=== PATIENT | female | born 1985 | race Caucasian/White ===

== ENCOUNTER → 2016-09-17 | Outpatient (CLI) | payer SELFPAY | LOC: RAD 15:09 | PROVIDERS: ATTEND Nurse Practitioner Women's Health | DX: Z34.81 Encounter for supervision of other normal pregnancy, first trimester (principal) | CPT/HCPCS: 76801 ==

== ENCOUNTER 2016-09-28 18:47 | Emergency (ER) | payer MEDICAID ==
--- NOTE | 2016-09-28 19:00 | ER Document Report ---
ED Medical Screen (RME) - General Chief Complaint: Vaginal Bleeding Stated Complaint: VAGINAL BLEEDING Mode of Arrival: Ambulatory Information source: Patient Notes: Patient presents to the emergency department with reports of vaginal spotting. Reports brown discharge. Also complains of back pain. Vomiting or diarrhea. Patient is approximately 10 weeks . G9 P 5 TRAVEL OUTSIDE OF THE [place] IN LAST 30 DAYS: No - Related Data Allergies/Adverse Reactions: No Known Allergies Allergy (Verified 09/28/16 18:57) Past Medical History - Social History Chew tobacco use (# tins/day): No Frequency of alcohol use: None Drug Abuse: None - Past Medical History Cardiac Medical History: Denies: Hx Hypertension, Hx Pulmonary Embolism, Hx Heart Murmur Pulmonary Medical History: Denies: Hx Asthma, Hx Sleep Apnea, Hx Tuberculosis Neurological Medical History: Denies: Hx Cerebrovascular Accident, Hx Seizures Endocrine Medical History: Reports: Hx Hyperthyroidism. Denies: Hx Hypothyroidism Renal/ Medical History: Reports: Hx Ovarian Cysts. Denies: Hx Kidney Stones, Hx Peritoneal Dialysis, Hx Pelvic Inflammatory Disease Malignancy Medical History: Denies: Hx Breast Cancer, Hx Cervical Cancer, Hx Ovarian Cancer GI Medical History: Denies: Hx Gastroesophageal Reflux Disease, Hx Hiatal Hernia , Hx Ulcer Musculoskeltal Medical History: Denies Hx Fibromyalgia Psychiatric Medical History: Reports: Hx Anxiety, Hx Depression Denies: Hx Bipolar Disorder, Hx Post Traumatic Stress Disorder, Hx Schizophrenia Traumatic Medical History: Denies: Hx Fractures Infectious Medical History: Denies: Hx HIV - Immunizations Hx Diphtheria, Pertussis, Tetanus Vaccination: Yes - 2006 Physical Exam - Vital signs Vitals: Temp Pulse Resp BP Pulse Ox 99.2 F 92 20 149/92 H 100 09/28/16 18:58 09/28/16 18:58 09/28/16 18:58 09/28/16 18:58 09/28/16 18:58 Course - Vital Signs Vital signs: Temp Pulse Resp BP Pulse Ox 99.2 F 92 20 149/92 H 100 09/28/16 18:58 09/28/16 18:58 09/28/16 18:58 09/28/16 18:58 09/28/16 18:58
[2016-09-28 19:30] LABS: APPEARANCE,URINE SLIGHTLY-CLOUDY; BILIRUBIN,URINE NEGATIVE (NEGATIVE); GLUCOSE, URINE NEGATIVE (NEGATIVE); KETONES,URINE NEGATIVE (NEGATIVE); LEUKOCYTE ESTERASE,URINE SMALL (NEGATIVE); NITRITE,URINE NEGATIVE (NEGATIVE); PROTEIN,URINE NEGATIVE (NEGATIVE); URINE SPECIFIC GRAVITY 1.018
[2016-09-28 19:32] LABS: ABSOLUTE BASOPHILS # (AUTO) 0.1 10^3/uL (0.0-0.2); ABSOLUTE EOSINOPHILS # (AUTO) 0.1 10^3/uL (0.0-0.6); ABSOLUTE LYMPHOCYTES (AUTO) 2.4 10^3/uL (0.5-4.7); ABSOLUTE MONOCYTES (AUTO) 0.8 10^3/uL (0.1-1.4); ABSOLUTE NEUT (AUTO) 6.7 10^3/uL (1.7-8.2); BASOPHILS % (AUTO) 0.8 % (0-2); EOSINOPHILS % (AUTO) 1.4 % (0-6); HEMATOCRIT 36.4 % (36.0-47.0); HEMOGLOBIN 12.6 g/dL (12.0-15.5); HGB HCT DIFFERENCE 1.4; LYMPHOCYTES % (AUTO) 24.1 % (13-45); MEAN CORPUSCULAR HEMOGLOBIN 28.7 pg (27.0-33.4); MEAN CORPUSCULAR HGB CONC 34.7 g/dL (32.0-36.0); MEAN CORPUSCULAR VOLUME 83 fl (80-97); MONOCYTES % (AUTO) 7.5 % (3-13); RED CELL DISTRIBUTION WIDTH 12.9 % (11.5-14.0); SEGMENTED NEUTROPHILS % (AUTO) 66.2 % (42-78); WHITE BLOOD COUNT 10.1 10^3/uL (4.0-10.5)
[2016-09-28 19:46] LABS: ALANINE AMINOTRANSFERASE 24 U/L (9-52); ALBUMIN 4.1 g/dL (3.5-5.0); ALKALINE PHOSPHATASE 93 U/L (38-126); ANION GAP 14 (5-19); ASPARTATE AMINO TRANSFERASE 18 U/L (14-36); BILIRUBIN,DIRECT 0.2 mg/dL (0.0-0.4); BILIRUBIN,TOTAL 0.3 mg/dL (0.2-1.3); BLOOD UREA NITROGEN 10 mg/dL (7-20); CALCIUM 10.5 mg/dL (8.4-10.2); CARBON DIOXIDE 26 mmol/L (22-30); CHLORIDE 103 mmol/L (98-107); CREATININE RESULT 0.55 mg/dL (0.52-1.25); GLUCOSE 93 mg/dL (75-110); POTASSIUM 4.4 mmol/L (3.6-5.0); SODIUM 142.5 mmol/L (137-145); TOTAL PROTEIN 7.2 g/dL (6.3-8.2)
--- NOTE | 2016-09-28 21:27 | ER Document Report ---
ED GI/ - General Time seen by provider: 21:20 Mode of Arrival: Ambulatory Information source: Patient TRAVEL OUTSIDE OF THE [place] IN LAST 30 DAYS: No - HPI Patient complains to provider of: Vaginal bleeding Associated symptoms: Other - See above <SIMONE TIWARI - Last Filed: 09/28/16 21:36> <MUKUND JACOME - Last Filed: 09/28/16 22:58> - General Chief Complaint: Vaginal Bleeding Stated Complaint: VAGINAL BLEEDING Notes: Patient is a 31 year old female who presents to the emergency department complaining of vaginal bleeding onset today. Patient states that she is about 10 weeks and had an ultrasound done 2 weeks ago showing a normal . Patient reports the bleeding is more of spotting and also complains of low to middle back pain. Patient denies any difficulty urinating and recent intercourse. 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 Vp Patient: [facility] (SIMONE TIWARI) - Related Data Allergies/Adverse Reactions: No Known Allergies Allergy (Verified 09/28/16 18:57) Past Medical History - General Information source: Patient - Social History Smoking Status: Never Smoker Chew tobacco use (# tins/day): No Frequency of alcohol use: None Drug Abuse: None Family History: Reviewed & Not Pertinent Endocrine Medical History: Reports: Hx Hyperthyroidism Renal/ Medical History: Reports: Hx Ectopic , Hx Ovarian Cysts Psychiatric Medical History: Reports: Hx Anxiety, Hx Depression - Immunizations Hx Diphtheria, Pertussis, Tetanus Vaccination: Yes - 2006 <SIMONE TIWARI - Last Filed: 09/28/16 21:36> Review of Systems - Review of Systems Constitutional: No symptoms reported EENT: No symptoms reported Cardiovascular: No symptoms reported Respiratory: No symptoms reported Gastrointestinal: No symptoms reported Genitourinary: denies: Other - difficulty urinating Female Genitourinary: See HPI, Vaginal bleeding Musculoskeletal: See HPI, Back pain Skin: No symptoms reported Hematologic/Lymphatic: No symptoms reported Neurological/Psychological: No symptoms reported -: Yes All other systems reviewed and negative <SIMONE TIWARI - Last Filed: 09/28/16 21:36> Physical Exam - Vital signs Interpretation: Normal - General General appearance: Appears well, Alert - HEENT Head: Normocephalic, Atraumatic - Respiratory Respiratory status: No respiratory distress - Cardiovascular Rhythm: Regular Heart sounds: Normal auscultation Murmur: No - Abdominal Inspection: Normal Distension: No distension Bowel sounds: Normal Tenderness: Nontender Organomegaly: No organomegaly - Back Back: Normal, Nontender - Extremities General upper extremity: Normal inspection, Normal ROM, Normal strength General lower extremity: Normal inspection, Normal ROM, Normal strength, Normal weight bearing - Neurological Neuro grossly intact: Yes Cognition: Normal Orientation: AAOx4 [place] Coma Scale Eye Opening: Spontaneous [place] Coma Scale Verbal: Oriented [place] Coma Scale Motor: Obeys Commands [place] Coma Scale Total: 15 Speech: Normal Motor strength normal: LUE, RUE, LLE, RLE - Psychological Associated symptoms: Normal affect, Normal mood - Skin Skin Temperature: Warm Skin Moisture: Dry Skin Color: Normal <SIMONE TIWARI - Last Filed: 09/28/16 21:36> Course - Laboratory Result Diagrams: 09/28/16 19:10 09/28/16 19:10 <SIMONE TIWARI - Last Filed: 09/28/16 21:36> - Laboratory Result Diagrams: 09/28/16 19:10 09/28/16 19:10 <MUKUND JACOME - Last Filed: 09/28/16 22:58> - Re-evaluation Re-evalutation: 09/28/16 Patient appears well. No bleeding currently. Good movement and heart beat on ultrasound. Patient is instructed to follow-up with her doctor. No Rhogram indicated. A positive. Stable for discharge home. (MUKUND JACOME) - Vital Signs Vital signs: Temp Pulse Resp BP Pulse Ox 99.2 F 92 20 149/92 H 100 09/28/16 18:58 09/28/16 18:58 09/28/16 19:57 09/28/16 18:58 09/28/16 18:58 - Laboratory Laboratory results interpreted by me: 09/28/16 09/28/16 19:10 19:10 Calcium 10.5 H Beta HCG, Quant 19224.00 H Urine Urobilinogen 2.0 H Ur Leukocyte Esterase SMALL H Procedures - Ultrasound/Bedside Ultrasound/Bedside Ultrasound: Other <MUKUND JACOME - Last Filed: 09/28/16 22:58> Discharge <SIMONE TIWARI - Last Filed: 09/28/16 21:36> <MUKUND JACOME - Last Filed: 09/28/16 22:58> - Discharge Clinical Impression: Bleeding in early Condition: Stable Disposition: HOME, SELF-CARE Instructions: Bleeding During Early ([facility]) Additional Instructions: Make sure you are drinking plenty of fluids! Follow-up with your doctor on Friday. Forms: Return to Work Scribe Attestation: 09/28/16 22:58 I personally performed the services described in the documentation, reviewed and edited the documentation which was dictated to the scribe in my presence, and it accurately records my words and actions. (MUKUND JACOME) Scribe Documentation - Scribe Written by Lance:: lance Monroe, 09/28/16, 2140 acting as scribe for :: Beata <SIMONE TIWARI - Last Filed: 09/28/16 21:36>
[2016-09-29 08:53] VITALS: BP 128/84
== END 2016-09-28 21:35 | disposition home or self-care (01) ==
LOC: ER 18:47
DX: O46.91 Antepartum hemorrhage, unspecified, first trimester (principal); N93.9 Abnormal uterine and vaginal bleeding, unspecified
CPT/HCPCS: 36415; 80053; 81001; 84702; 85025; 99284

== ENCOUNTER 2016-10-07 20:44 | Emergency (ER) | payer OTHER, MEDICAID ==
[2016-10-07 21:24] VITALS: BP 132/76
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
== END 2016-10-08 02:20 | disposition left against medical advice (07) ==
LOC: ER 20:44
DX: Z53.9 Procedure and treatment not carried out, unspecified reason (principal); R10.9 Unspecified abdominal pain; V87.7XXA Person injured in collision between other specified motor vehicles (traffic), initial encounter
CPT/HCPCS: 76801; 99281

== ENCOUNTER 2017-05-27 04:25 | Day surgery (SDC) | payer MEDICAID ==
[2017-05-27] MEDS ORDERED: KETOROLAC TROMETHAMINE INJ/PF 30 MG/1 ML SDV IV ONE (04:51)
[2017-05-27] MEDS ORDERED: NORMAL SALINE 1000 ML 1,000 ML IV ONE (04:51)
[2017-05-27] MEDS ORDERED: ONDANSETRON HCL INJ/PF 4 MG/2 ML SDV IV ONE ×2 (04:51→06:54)
--- NOTE | 2017-05-27 04:53 | ER Document Report ---
ED GI/ - General Chief Complaint: Epigastric Pain Stated Complaint: CHEST PAIN Time Seen by Provider: 05/27/17 04:46 Notes: Patient is a 32-year-old female comes emergency department for chief complaint of upper abdominal pain that started 3 hours ago, she states it is sharp, persistent, and is making her nauseated. She reports similar symptoms in the past from her "gallbladder attacks", states it is never lasted this long before. She had [place] steak and macaroni and cheese for dinner. She denies vomiting, fever, flank pain, lower abdominal pain. She is 7 weeks status post vaginal delivery. She is medicated for hypertension. TRAVEL OUTSIDE OF THE [place] IN LAST 30 DAYS: No - Related Data Allergies/Adverse Reactions: No Known Allergies Allergy (Verified 09/28/16 18:57) Past Medical History - General Information source: Patient - Social History Smoking Status: Never Smoker Frequency of alcohol use: None Drug Abuse: None Lives with: Family Family History: Reviewed & Not Pertinent Patient has suicidal ideation: No Patient has homicidal ideation: No - Past Medical History Cardiac Medical History: Reports: Hx Hypertension Denies: Hx Pulmonary Embolism, Hx Heart Murmur Pulmonary Medical History: Denies: Hx Asthma, Hx Sleep Apnea, Hx Tuberculosis Neurological Medical History: Denies: Hx Cerebrovascular Accident, Hx Seizures Endocrine Medical History: Reports: Hx Hyperthyroidism. Denies: Hx Hypothyroidism Renal/ Medical History: Reports: Hx Ectopic , Hx Ovarian Cysts. Denies: Hx Kidney Stones, Hx Peritoneal Dialysis, Hx Pelvic Inflammatory Disease Malignancy Medical History: Denies: Hx Breast Cancer, Hx Cervical Cancer, Hx Ovarian Cancer GI Medical History: Denies: Hx Gastroesophageal Reflux Disease, Hx Hiatal Hernia , Hx Ulcer Musculoskeltal Medical History: Denies Hx Fibromyalgia Psychiatric Medical History: Reports: Hx Anxiety, Hx Depression Denies: Hx Bipolar Disorder, Hx Post Traumatic Stress Disorder, Hx Schizophrenia Traumatic Medical History: Denies: Hx Fractures Infectious Medical History: Denies: Hx HIV Surgical Hx: Negative - Immunizations Hx Diphtheria, Pertussis, Tetanus Vaccination: Yes - 2006 Review of Systems - Review of Systems Constitutional: No symptoms reported EENT: No symptoms reported Cardiovascular: No symptoms reported Respiratory: No symptoms reported Gastrointestinal: See HPI Genitourinary: No symptoms reported Female Genitourinary: No symptoms reported Musculoskeletal: No symptoms reported Skin: No symptoms reported Hematologic/Lymphatic: No symptoms reported Neurological/Psychological: No symptoms reported Physical Exam - Vital signs Vitals: Temp Pulse Resp BP Pulse Ox 97.7 F 85 18 136/86 H 98 05/27/17 04:28 05/27/17 04:28 05/27/17 04:28 05/27/17 04:28 05/27/17 04:28 Interpretation: Normal - General General appearance: Alert, Anxious In distress: Mild - HEENT Head: Normocephalic, Atraumatic Eyes: Normal Pupils: PERRL - Respiratory Respiratory status: No respiratory distress Chest status: Nontender Breath sounds: Normal Chest palpation: Normal - Cardiovascular Rhythm: Regular Heart sounds: Normal auscultation Murmur: No - Abdominal Inspection: Normal Distension: No distension Bowel sounds: Normal Tenderness: Tender, Seay's sign, Guarding. No: McBurney's point Organomegaly: No organomegaly - Back Back: Normal, Nontender - Extremities General upper extremity: Normal inspection, Nontender, Normal color, Normal ROM , Normal temperature General lower extremity: Normal inspection, Nontender, Normal color, Normal ROM , Normal temperature, Normal weight bearing. No: Scarlet's sign - Neurological Neuro grossly intact: Yes Cognition: Normal Orientation: AAOx4 Haroldo Coma Scale Eye Opening: Spontaneous [place] Coma Scale Verbal: Oriented [place] Coma Scale Motor: Obeys Commands [place] Coma Scale Total: 15 Speech: Normal Motor strength normal: LUE, RUE, LLE, RLE Sensory: Normal - Psychological Associated symptoms: Normal affect, Normal mood - Skin Skin Temperature: Warm Skin Moisture: Dry Skin Color: Normal Course - Re-evaluation Re-evalutation: Patient with positive Seay sign and epigastric pain on initial evaluation. She does appear uncomfortable. No vomiting, no fever, vital signs unremarkable. CBC unremarkable, chemistry showing elevated LFTs and alkaline phosphate, bilirubin and lipase are unremarkable. Urinalysis unremarkable, hCG is negative. Ultrasound showing cholelithiasis and concerns for cholecystitis. No significant dilation of the common bile duct, no pericholecystic fluid or wall thickening, however positive Seay sign noted. Giving antibiotics, patient has been kept n.p.o., given IV fluids, reevaluated patient, pain is returning and increasing, re-medicating. Spoke with Dr. Giron, general surgery, he will evaluate the patient. Patient to be admitted to the surgical service. She states understanding and agreement. - Vital Signs Vital signs: Temp Pulse Resp BP Pulse Ox 97.7 F 85 18 136/86 H 98 05/27/17 04:28 05/27/17 04:28 05/27/17 04:28 05/27/17 04:28 05/27/17 04:28 - Laboratory Result Diagrams: 05/27/17 05:31 05/27/17 05:31 Laboratory results interpreted by me: 05/27/17 05:31 Sodium 145.7 H Direct Bilirubin 0.5 H AST 239 H ALT 142 H Alkaline Phosphatase 136 H Discharge - Discharge Clinical Impression: Acute cholecystitis, Elevated LFTs, Upper abdominal pain Condition: Stable Disposition: ADMITTED INPATIENT Admitting Provider: Surgicalist Unit Admitted: Surgical Floor
[2017-05-27 05:43] LABS: ABSOLUTE BASOPHILS # (AUTO) 0.1 10^3/uL (0.0-0.2); ABSOLUTE EOSINOPHILS # (AUTO) 0.1 10^3/uL (0.0-0.6); ABSOLUTE LYMPHOCYTES (AUTO) 1.7 10^3/uL (0.5-4.7); ABSOLUTE MONOCYTES (AUTO) 0.5 10^3/uL (0.1-1.4); ABSOLUTE NEUT (AUTO) 7.2 10^3/uL (1.7-8.2); BASOPHILS % (AUTO) 0.8 % (0-2); HEMOGLOBIN 13.2 g/dL (12.0-15.5); HGB HCT DIFFERENCE 0.6; LYMPHOCYTES % (AUTO) 17.6 % (13-45); MEAN CORPUSCULAR HGB CONC 33.9 g/dL (32.0-36.0); MEAN CORPUSCULAR VOLUME 83 fl (80-97); MONOCYTES % (AUTO) 5.7 % (3-13); RED BLOOD COUNT 4.73 10^6/uL (3.72-5.28); RED CELL DISTRIBUTION WIDTH 13.5 % (11.5-14.0); SEGMENTED NEUTROPHILS % (AUTO) 74.9 % (42-78); WHITE BLOOD COUNT 9.6 10^3/uL (4.0-10.5)
[2017-05-27 06:16] LABS: APPEARANCE,URINE CLEAR; BILIRUBIN,URINE NEGATIVE (NEGATIVE); GLUCOSE, URINE NEGATIVE (NEGATIVE); KETONES,URINE NEGATIVE (NEGATIVE); LEUKOCYTE ESTERASE,URINE NEGATIVE (NEGATIVE); NITRITE,URINE NEGATIVE (NEGATIVE); PROTEIN,URINE NEGATIVE (NEGATIVE); URINE SPECIFIC GRAVITY 1.018; UROBILINOGEN,URINE NEGATIVE mg/dL (<2.0)
[2017-05-27 06:25] LABS: ALANINE AMINOTRANSFERASE 142 U/L (9-52); ALBUMIN 4.4 g/dL (3.5-5.0); ALKALINE PHOSPHATASE 136 U/L (38-126); ANION GAP 12 (5-19); ASPARTATE AMINO TRANSFERASE 239 U/L (14-36); BILIRUBIN,DIRECT 0.5 mg/dL (0.0-0.4); BILIRUBIN,TOTAL 0.7 mg/dL (0.2-1.3); BLOOD UREA NITROGEN 14 mg/dL (7-20); CALCIUM 10.2 mg/dL (8.4-10.2); CARBON DIOXIDE 28 mmol/L (22-30); CHLORIDE 106 mmol/L (98-107); CREATININE RESULT 0.61 mg/dL (0.52-1.25); GLUCOSE 94 mg/dL (75-110); LIPASE 98.7 U/L (23-300); POTASSIUM 4.2 mmol/L (3.6-5.0); SODIUM 145.7 mmol/L (137-145); TOTAL PROTEIN 7.4 g/dL (6.3-8.2)
--- NOTE | 2017-05-27 06:41 | RADIOLOGY REPORT (SQ) ---
EXAM DESCRIPTION: U/S ABDOMEN LIMITED W/O DOP COMPLETED DATE/TIME: 05/27/2017 6:22 am REASON FOR STUDY: eval gallbladder COMPARISON: 02/16/2014. TECHNIQUE: Dynamic and static grayscale images acquired of the abdomen and recorded on PACS. Additio nal selected color Doppler and spectral images recorded. LIMITATIONS: None. FINDINGS: PANCREAS: No masses. Visualized pancreatic duct normal caliber. LIVER: No masses. Mild hepatic steatosis. LIVER VASCULATURE: Normal directional flow of the main portal vein and hepatic veins. GALLBLADDER: Gallstone(s). No pericholecystic fluid. No wall thickening. Gallbladder wall thickness is 0.2 cm. No pericholecystic fluid. ULTRASOUND-DETECTED SEAY'S SIGN: Positive. INTRAHEPATIC DUCTS AND COMMON DUCT: 0.6 cm diameter CBD. Intrahepatic ducts normal caliber. No filli ng defects. INFERIOR VENA CAVA: Normal flow. AORTA: No aneurysm. RIGHT KIDNEY: Normal size. Normal echogenicity. No solid or suspicious masses. No hydronephrosis. No calcifications. PERITONEAL AND RIGHT PLEURAL SPACE: No ascites or effusions. OTHER: No other significant findings. IMPRESSION: Cholelithiasis, positive sonographic Seay's test, and 0.6 cm diameter mildly dilated c ommon duct. Differential diagnosis includes acute cholecystitis and biliary colic. TECHNICAL DOCUMENTATION: JOB ID: [id number] [employer]- All Rights Reserved
[2017-05-27] MEDS ORDERED: MORPHINE SULFATE 10 MG/ML INJ IV ONE (06:54)
[2017-05-27] MEDS ORDERED: NORMAL SALINE 1000 ML 1,000 ML IV PRN (06:55)
[2017-05-27] MEDS ORDERED: AMPICILLIN SOD/SULBACTAM 3 GM VIAL IV ONE (07:03)
[2017-05-27] MEDS ORDERED: ONDANSETRON HCL INJ/PF 4 MG/2 ML SDV ONE (07:53)
[2017-05-27] MEDS ORDERED: NEOSTIGMINE METHYLSULFATE 10 MG/10 ML VIAL ONE (07:53)
[2017-05-27] MEDS ORDERED: GLYCOPYRROLATE INJ 0.4 MG/2 ML VIAL ONE (07:53)
[2017-05-27] MEDS ORDERED: DEXAMETHASONE SOD PHOSPHATE INJ 4 MG/1 ML VIAL ONE (07:53)
--- NOTE | 2017-05-27 11:24 | PDOC H&P ---
History of Present Illness Admission Date/PCP: 05/27/17 08:41 Patient complains of: Epigastric Abdominal pain radiating to the back beginning 10 hrs ago History of Present Illness: LEAH MILLER is a 32 year old female who is admitted via the ER with US diagnosed acute cholecystitis following presentation with epigastric pain that began 10 hrs ago (1am this morning). The pain radiates to the back. She has had similar pain in the past but was not this prolonged. Denies fever, vomiting or jaundice. Does have nausea. Past Medical History Past Medical History: Pre-eclampsia Cardiac Medical History: Reports: Hypertension Past Surgical History Past Surgical History: Reports: None Social History Information Source: Patient Lives with: Family Smoking Status: Never Smoker Family History Family History: Reviewed & Not Pertinent Parental Family History Reviewed: No Children Family History Reviewed: No Sibling(s) Family History Reviewed.: No Medication/Allergy Home Medications: Labetalol HCl [Trandate] 300 mg PO Q12 05/27/17 Pnv,Calcium 72/Iron/Folic Acid [ Plus Tablet] 1 tab PO DAILY 05/27/17 Allergies/Adverse Reactions: No Known Allergies Allergy (Verified 09/28/16 18:57) Review of Systems Constitutional: ABSENT: chills, fever(s), headache(s), weight gain, weight loss Eyes: ABSENT: visual disturbances Ears: ABSENT: hearing changes Cardiovascular: ABSENT: chest pain, dyspnea on exertion, edema, orthropnea, palpitations Respiratory: ABSENT: cough, hemoptysis Gastrointestinal: PRESENT: as per HPI, abdominal pain, bloating, nausea, other Genitourinary: ABSENT: dysuria, hematuria Musculoskeletal: ABSENT: joint swelling Integumentary: ABSENT: rash, wounds Neurological: ABSENT: abnormal gait, abnormal speech, confusion, dizziness, focal weakness, syncope Psychiatric: ABSENT: anxiety, depression, homidical ideation, suicidal ideation Endocrine: ABSENT: cold intolerance, heat intolerance, polydipsia, polyuria Hematologic/Lymphatic: ABSENT: easy bleeding, easy bruising Physical Exam Vital Signs: Temp Pulse Resp BP Pulse Ox 97.7 F 85 18 136/86 H 98 05/27/17 04:28 05/27/17 04:28 05/27/17 04:28 05/27/17 04:28 05/27/17 04:28 General appearance: PRESENT: no acute distress, morbidly obese Head exam: PRESENT: atraumatic, normocephalic Eye exam: PRESENT: conjunctiva pink, EOMI, PERRLA Ear exam: PRESENT: normal external ear exam Mouth exam: PRESENT: moist, neck supple Respiratory exam: PRESENT: clear to auscultation josephine Cardiovascular exam: PRESENT: RRR, +S1, +S2 - Obese, soft, nontender. No guarding at this time. GI/Abdominal exam: PRESENT: normal bowel sounds Neurological exam: PRESENT: alert, oriented to person, oriented to place, oriented to time Psychiatric exam: PRESENT: normal mood Focused psych exam: ABSENT: catatonic, delusional, euphoric, flight of ideas, internal stimuli, paranoid, pressured speech, psychomotor agitation, restlessness, other Results Impressions: Abdomen Ultrasound 05/27/17 04:51 IMPRESSION: Cholelithiasis, positive sonographic Seay's test, and 0.6 cm diameter mildly dilated common duct. Differential diagnosis includes acute cholecystitis and biliary colic. Assessment & Plan - Diagnosis (1) Acute cholecystitis Is this a current diagnosis for this admission?: Yes Plan: The patient is admitted She will be kept NPO IV Fluids Continued analgesia She will be scheduled for a laparoscopic cholecystectomy - I spoke with the patient and obtained an informed consent from her for the procedure highlighting the possible risks. (2) Elevated LFTs Is this a current diagnosis for this admission?: Yes Plan: As for cholecystitis (3) Upper abdominal pain Is this a current diagnosis for this admission?: Yes Plan: As for cholecystitis. - Time Time Spent: 30 to 50 Minutes Critical Time spent with patient: 15-24 minutes Medications reviewed and adjusted accordingly: Yes - on labetalol started at time of pre-eclampsia 7 weeks ago Anticipated discharge: Home Within: within 24 hours
[2017-05-27] MEDS ORDERED: BUPIVACAINE HCL 0.25 % INJ/PF (2.5 MG/1 ML) 30 ML VIAL ONE (13:38)
[2017-05-27] MEDS ORDERED: MIDAZOLAM 2 MG/2 ML INJ ONE (13:45)
[2017-05-27] MEDS ORDERED: FENTANYL CITRATE INJ/PF 100 MCG/2 ML AMPUL ONE (13:45)
[2017-05-27] MEDS ORDERED: HYDROMORPHONE HCL INJ/PF 2 MG/ML AMPULE ONE (13:46)
[2017-05-27] MEDS ORDERED: EPHEDRINE SULFATE INJ 50 MG/1 ML AMPULE ONE (13:46)
[2017-05-27] MEDS ORDERED: PROPOFOL INJ 200 MG/20 ML VIAL IV ONE (13:46)
[2017-05-27] MEDS ORDERED: IBUPROFEN INJ 800 MG/8 ML VIAL IV ONE (13:46)
[2017-05-27] MEDS ORDERED: LIDOCAINE 1% INJ-PF (10 MG/ML) 30 ML SDV ONE (14:08)
[2017-05-27] MEDS ORDERED: PROMETHAZINE HCL INJ 25 MG/1 ML VIAL IV PRN (14:21)
[2017-05-27] MEDS ORDERED: DIPHENHYDRAMINE HCL 50 MG/ML VIAL IV PRN (14:21)
[2017-05-27] MEDS ORDERED: FENTANYL CITRATE INJ/PF 100 MCG/2 ML AMPUL IV PRN ×3 (14:21)
[2017-05-27] MEDS ORDERED: MEPERIDINE HCL/PF INJ 25 MG/1 ML DISP.SYRIN IV PRN (14:21)
[2017-05-27] MEDS ORDERED: OXYCODONE-ACETAMINOPHEN 5-325 MG TABLET PO PRN ×2 (16:26)
[2017-05-27] MEDS ORDERED: ONDANSETRON HCL INJ/PF 4 MG/2 ML SDV IV PRN (16:45)
[2017-05-27 17:46] VITALS: BP 140/84
--- NOTE | 2017-05-27 21:14 | EKG REPORT ---
SEVERITY:- BORDERLINE ECG - SINUS RHYTHM PROBABLE LEFT ATRIAL ABNORMALITY BORDERLINE T ABNORMALITIES, ANTERIOR LEADS : Confirmed by: Anisha Siu MD 27-May-2017 21:14:19
--- NOTE | 2017-05-28 00:19 | Operative Report ---
Operative Report DATE OF SURGERY: 05/27/17 PREOPERATIVE DIAGNOSIS: Acute Cholecystitis POSTOPERATIVE DIAGNOSIS: Acute Cholecystitis OPERATION: Laparoscopic Cholecystectomy SURGEON: LIZETH PIRES ANESTHESIA: GA TISSUE REMOVED OR ALTERED: gallbladder COMPLICATIONS: None ESTIMATED BLOOD LOSS: 30 ml INTRAOPERATIVE FINDINGS: Gallbladder tensely distended with pale bile. Pericholecystic edema noted. No gangrene PROCEDURE: The patient was brought to the operating room and placed on the operating table. General endotracheal anesthesia was administered and she was positioned supine on the table. The abdomen was prepped with chloraprep and sterile drapes laid to expose the anterior abdominal wall. A timeout was done. Under sterile aseptic conditions, access to the peritoneal cavity was gained using the open Amy technique with a 10 mm port at the umbilicus. Pneumoperitoneum was insufflated to 15 mmhg. Initial diagnostic laparoscopy revealed a distended gallbladder. Three additionad ports were placed - a 10mm midline subxiphoid port and two 5mm right subcostal ports, one in the midclavicular line and the other in the anterior axillary line. The gallbladder was first aspirated of the bile in it. It was then grasped at the fundus with a grasper passed through the lateral right subcostal port and at the bibi's pouch with a grasper passed through the medial right subcostal port. The peritoneum at the junction between the bibi's pouch and the cystic duct was opened with the [place] dissector and this rent was taken across the Calot's triangle anteriorly and posteriorly. The Calot's triangle was then dissected bluntly with the [place] dissector and the laparoscopic suction machine both posteriorly and anteriorly, dissecting out the cystic duct and cystic artery to create a critical view of safety. The cystic duct was doubly clipped distally and once proximally and transected between the clips. The cystic artery was divided with the Ligasure device. The gallbladder was then dissected off the gallbladder fossa with the laparoscopic monopolar electrosurgical unit with the L-configuration. It was retrieved from the peritoneal cavity in an endobag. The right subhepatic space was irrigated with saline and reaspirated. Final inspection did not reveal any bile leak or bleeding. The pneumoperitoneum was desufflated and all the ports removed under vision. The umbilical port fascial layer was closed with 0-vicryl figure-of- eight stitch and all the skin incisions closed with 4-0 monocryl in a subcuticular fashion. the incisions were infiltrated with local anesthesia, a 1: 1 mixture of 1% lidocaine and 0.25% bupivacaine, a total of 20 cc; they were then cleaned and dressed with dermabond. The patient tolerated the procedure well, she wsa extubated in the operating room and taken to the PACU in stable condition.
--- NOTE | 2017-05-28 21:35 | PDOC DISCHARGE SUMMARY ---
General - Admit/Disc Date/PCP Discharge Date: 05/27/17 - Discharge Diagnosis (1) Acute cholecystitis Is this a current diagnosis for this admission?: Yes (2) Elevated LFTs Is this a current diagnosis for this admission?: Yes (3) Upper abdominal pain Is this a current diagnosis for this admission?: Yes - Additional Information Resuscitation Status: Full Code Discharge Diet: As Tolerated Discharge Activity: Activity As Tolerated, No Driving, No Lifting Over 10 Pounds , No Lifting/Push/Pulling, Slowly Increase Activity, No tub bath Home Medications: Labetalol HCl [Trandate] 300 mg PO Q12 05/27/17 Pnv,Calcium 72/Iron/Folic Acid [ Plus Tablet] 1 tab PO DAILY 05/27/17 History of Present Illness History of Present Illness: LEAH MILLER is a 32 year old female who is admitted via the ER with US diagnosed acute cholecystitis following presentation with epigastric pain that began 10 hrs ago (1am this morning). The pain radiates to the back. She has had similar pain in the past but was not this prolonged. Denies fever, vomiting or jaundice. Does have nausea. Hospital Course Hospital Course: The patient had a laparoscopic cholecystectomy performed on the same day of admission; she did well and was discharged form the recovery room after tolerating orally. Physical Exam Vital Signs: Temp Pulse Resp BP Pulse Ox 99.3 F 79 16 140/84 H 94 05/27/17 17:30 05/27/17 17:30 05/27/17 17:30 05/27/17 17:30 05/27/17 17:30 Intake & Output 05/27/17 05/28/17 05/29/17 06:59 06:59 06:59 Intake Total 2150 Output Total 410 Balance 1740 Weight 104.326 kg General appearance: PRESENT: no acute distress, well-developed, well-nourished Head exam: PRESENT: atraumatic, normocephalic Eye exam: PRESENT: conjunctiva pink, EOMI, PERRLA. ABSENT: scleral icterus Ear exam: PRESENT: normal external ear exam Mouth exam: PRESENT: moist, tongue midline Neck exam: ABSENT: carotid bruit, JVD, lymphadenopathy, thyromegaly Respiratory exam: PRESENT: clear to auscultation josephine. ABSENT: rales, rhonchi, wheezes Cardiovascular exam: PRESENT: RRR. ABSENT: diastolic murmur, rubs, systolic murmur Pulses: PRESENT: normal dorsalis pedis pul Vascular exam: PRESENT: normal capillary refill GI/Abdominal exam: PRESENT: normal bowel sounds, soft. ABSENT: distended, guarding, mass, organolmegaly, rebound, tenderness Rectal exam: PRESENT: deferred Extremities exam: PRESENT: full ROM. ABSENT: calf tenderness, clubbing, pedal edema Neurological exam: PRESENT: alert, awake, oriented to person, oriented to place , oriented to time, oriented to situation, CN II-XII grossly intact. ABSENT: motor sensory deficit Psychiatric exam: PRESENT: appropriate affect, normal mood. ABSENT: homicidal ideation, suicidal ideation Skin exam: PRESENT: dry, intact, warm. ABSENT: cyanosis, rash Results Laboratory Results: 05/27/17 05:31 05/27/17 05:31 Impressions: Abdomen Ultrasound 05/27/17 04:51 IMPRESSION: Cholelithiasis, positive sonographic Seay's test, and 0.6 cm diameter mildly dilated common duct. Differential diagnosis includes acute cholecystitis and biliary colic.
== END 2017-05-27 17:55 | disposition home or self-care (01) ==
LOC: ER 04:25 → EH 08:41 → UNDOADMIN 08:41 → ER 15:35 → OROUT 15:37 → UNDODISIN 17:55 → OROUT 17:55
PROVIDERS: ATTEND Surgery
PROC: 0FT44ZZ Resection of Gallbladder, Percutaneous Endoscopic Approach (ICD-10-PCS; principal; 2017-05-27 14:00)
DX: K80.10 Calculus of gallbladder with chronic cholecystitis without obstruction (principal); I10 Essential (primary) hypertension; E66.9 Obesity, unspecified; Z68.41 Body mass index [BMI] 40.0-44.9, adult
CPT/HCPCS: 93005; 99285; 96361; 96374; 96375; 36415; 83690; 85025; 81025; 80053; 81001; 88304 ×2; 76705; 93010; 47562; J2250; J1100; J3010; J0295; J3490 ×2; J1885; J1170; J2405; S0020; J7030; J2704; J1741; 790

== ENCOUNTER 2017-06-26 16:22 | Emergency (ER) | payer MEDICAID ==
[2017-06-26 16:29] VITALS: BP 143/91
--- NOTE | 2017-06-26 17:17 | ER Document Report ---
ED Blood Pressure Problem - General Chief Complaint: Blood Pressure Problem Stated Complaint: BLOOD PRESSURE CONCERNS Time Seen by Provider: 06/26/17 17:14 Mode of Arrival: Ambulatory Information source: Patient Notes: Patient states she has no symptoms other than her blood pressure is high. She states she has been out of medication for 2 days. She states she moved here and has a new provider has been unable to see them. She states she has no prescription for her blood pressure. She denies any chest pain no shortness of breath no headache. No double vision. Symptoms have been mild. They are constant. Nothing makes it better or worse. TRAVEL OUTSIDE OF THE [place] IN LAST 30 DAYS: No - Related Data Allergies/Adverse Reactions: No Known Allergies Allergy (Verified 06/26/17 16:24) Past Medical History - General Information source: Patient - Social History Smoking Status: Never Smoker Chew tobacco use (# tins/day): No Frequency of alcohol use: None Drug Abuse: None Family History: Reviewed & Not Pertinent Patient has suicidal ideation: No Patient has homicidal ideation: No - Past Medical History Cardiac Medical History: Reports: Hx Hypertension Denies: Hx Pulmonary Embolism, Hx Heart Murmur Pulmonary Medical History: Denies: Hx Asthma, Hx Sleep Apnea, Hx Tuberculosis Neurological Medical History: Denies: Hx Cerebrovascular Accident, Hx Seizures Endocrine Medical History: Reports: Hx Hyperthyroidism. Denies: Hx Hypothyroidism Renal/ Medical History: Reports: Hx Ectopic , Hx Ovarian Cysts. Denies: Hx Kidney Stones, Hx Peritoneal Dialysis, Hx Pelvic Inflammatory Disease Malignancy Medical History: Denies: Hx Breast Cancer, Hx Cervical Cancer, Hx Ovarian Cancer GI Medical History: Denies: Hx Gastroesophageal Reflux Disease, Hx Hiatal Hernia , Hx Ulcer Musculoskeltal Medical History: Denies Hx Fibromyalgia Psychiatric Medical History: Reports: Hx Anxiety, Hx Depression Denies: Hx Bipolar Disorder, Hx Post Traumatic Stress Disorder, Hx Schizophrenia Traumatic Medical History: Denies: Hx Fractures Infectious Medical History: Denies: Hx HIV Past Surgical History: Reports: Hx Cholecystectomy - Immunizations Hx Diphtheria, Pertussis, Tetanus Vaccination: Yes - 2006 Review of Systems - Review of Systems Constitutional: denies: Chills, Malaise EENT: denies: Eye discharge, Blurred vision Cardiovascular: denies: Chest pain, Palpitations Physical Exam - Vital signs Vitals: Temp Pulse Resp BP Pulse Ox 99.1 F 83 16 143/91 H 99 06/26/17 16:28 06/26/17 16:28 06/26/17 16:28 06/26/17 16:28 06/26/17 16:28 Interpretation: Hypertensive - General General appearance: Appears well, Alert In distress: None - HEENT Head: Normocephalic, Atraumatic Eyes: Normal Pupils: PERRL - Respiratory Respiratory status: No respiratory distress Chest status: Nontender Breath sounds: Normal Chest palpation: Normal - Cardiovascular Rhythm: Regular Heart sounds: Normal auscultation Murmur: No - Back Back: Normal, Nontender - Psychological Associated symptoms: Normal affect, Normal mood - Skin Skin Temperature: Warm Skin Moisture: Dry Skin Color: Normal Course - Vital Signs Vital signs: Temp Pulse Resp BP Pulse Ox 99.1 F 83 16 143/91 H 99 06/26/17 16:28 06/26/17 16:28 06/26/17 16:28 06/26/17 16:28 06/26/17 16:28 Discharge - Discharge Clinical Impression: Uncontrolled hypertension Condition: Stable Disposition: HOME, SELF-CARE Instructions: High Blood Pressure, Requiring Treatment ([facility]) Additional Instructions: Please have your blood pressure rechecked within 1 week by your provider. Prescriptions: Labetalol HCl 300 mg PO BID 60 Days tablet Forms: Elevated Blood Pressure
== END 2017-06-26 17:22 | disposition home or self-care (01) ==
LOC: ER 16:22
DX: I10 Essential (primary) hypertension (principal); T50.906A Underdosing of unspecified drugs, medicaments and biological substances, initial encounter; Z91.128 Patient's intentional underdosing of medication regimen for other reason; Z91.14 Patient's other noncompliance with medication regimen
CPT/HCPCS: 99283

== ENCOUNTER 2019-06-22 17:40 | Emergency (ER) | payer SELFPAY ==
--- NOTE | 2019-06-22 18:47 | ER Document Report ---
ED Medical Screen (RME) - General Chief Complaint: Headache Stated Complaint: BLOOD PRESSURE PROBLEM/CHEST TIGHTNESS Time Seen by Provider: 06/22/19 18:39 Notes: 34-year-old female with hypertension presents to the emergency department with chest tightness, and tachycardia. Patient states she checked her blood pressure at home triple over triple in her heart rate was 198. She said just prior that she had a sensation of her heart beating out of her chest. Patient does complain of a headache, denies recent illness, states that she does have chest tightness of breath or dyspnea on exertion, denies nausea or vomiting denies positive family history for ACS. Exam: Well-appearing in no acute distress, tachycardic with regular rhythm, S1- S2 heard with no murmurs I have greeted and performed a rapid initial assessment of this patient. A comprehensive ED assessment and evaluation of the patient, analysis of test results and completion of medical decision making process will be conducted by an additional ED providers. TRAVEL OUTSIDE OF THE [place] IN LAST 30 DAYS: No - Related Data Allergies/Adverse Reactions: No Known Allergies Allergy (Verified 06/22/19 18:35) Past Medical History - Social History Chew tobacco use (# tins/day): No Frequency of alcohol use: None Drug Abuse: None - Past Medical History Cardiac Medical History: Reports: Hx Hypertension Denies: Hx Pulmonary Embolism, Hx Heart Murmur Pulmonary Medical History: Denies: Hx Asthma, Hx Sleep Apnea, Hx Tuberculosis Neurological Medical History: Denies: Hx Cerebrovascular Accident, Hx Seizures Endocrine Medical History: Reports: Hx Hyperthyroidism. Denies: Hx Hypothyroidism Renal/ Medical History: Reports: Hx Ectopic , Hx Ovarian Cysts. Denies: Hx Kidney Stones, Hx Peritoneal Dialysis, Hx Pelvic Inflammatory Disease Malignancy Medical History: Denies: Hx Breast Cancer, Hx Cervical Cancer, Hx Ov pavel Cancer GI Medical History: Denies: Hx Gastroesophageal Reflux Disease, Hx Hiatal Hernia, Hx Ulcer Musculoskeltal Medical History: Denies Hx Fibromyalgia Psychiatric Medical History: Reports: Hx Anxiety, Hx Depression Denies: Hx Bipolar Disorder, Hx Post Traumatic Stress Disorder, Hx Schizophrenia Traumatic Medical History: Denies: Hx Fractures Infectious Medical History: Denies: Hx HIV Past Surgical History: Reports: Hx Cholecystectomy - Immunizations Hx Diphtheria, Pertussis, Tetanus Vaccination: Yes - 2006 Physical Exam - Vital signs Vitals: Temp Pulse Resp BP Pulse Ox 98.6 F 73 18 146/104 H 100 06/22/19 17:58 06/22/19 17:58 06/22/19 17:58 06/22/19 17:58 06/22/19 17:58 Course - Vital Signs Vital signs: Temp Pulse Resp BP Pulse Ox 98.6 F 73 18 146/104 H 100 06/22/19 18:35 06/22/19 18:35 06/22/19 18:35 06/22/19 18:35 06/22/19 18:35
[2019-06-22 19:41] LABS: ABSOLUTE BASOPHILS # (AUTO) 0.1 10^3/uL (0.0-0.2); ABSOLUTE EOSINOPHILS # (AUTO) 0.3 10^3/uL (0.0-0.6); ABSOLUTE LYMPHOCYTES (AUTO) 2.4 10^3/uL (0.5-4.7); ABSOLUTE MONOCYTES (AUTO) 0.6 10^3/uL (0.1-1.4); BASOPHILS % (AUTO) 0.9 % (0-2); EOSINOPHILS % (AUTO) 3.3 % (0-6); HEMATOCRIT 41.2 % (36.0-47.0); HEMOGLOBIN 14.1 g/dL (12.0-15.5); LYMPHOCYTES % (AUTO) 25.8 % (13-45); MEAN CORPUSCULAR HEMOGLOBIN 29.1 pg (27.0-33.4); MEAN CORPUSCULAR HGB CONC 34.3 g/dL (32.0-36.0); MEAN CORPUSCULAR VOLUME 85 fl (80-97); PLATELET COUNT 359 10^3/uL (150-450); RED BLOOD COUNT 4.86 10^6/uL (3.72-5.28); RED CELL DISTRIBUTION WIDTH 13.2 % (11.5-14.0); TOTAL CELLS COUNTED % (AUTO) 100 %; WHITE BLOOD COUNT 9.5 10^3/uL (4.0-10.5)
[2019-06-22 19:51] LABS: APPEARANCE,URINE CLEAR; BILIRUBIN,URINE NEGATIVE (NEGATIVE); COLOR,URINE YELLOW; GLUCOSE, URINE NEGATIVE (NEGATIVE); KETONES,URINE NEGATIVE (NEGATIVE); LEUKOCYTE ESTERASE,URINE SMALL (NEGATIVE); NITRITE,URINE NEGATIVE (NEGATIVE); PROTEIN,URINE NEGATIVE (NEGATIVE); URINE SPECIFIC GRAVITY 1.014; UROBILINOGEN,URINE NEGATIVE mg/dL (<2.0)
[2019-06-22 20:01] LABS: ALBUMIN 4.7 g/dL (3.5-5.0); ALKALINE PHOSPHATASE 84 U/L (38-126); ANION GAP 13 (5-19); ASPARTATE AMINO TRANSFERASE 31 U/L (14-36); BILIRUBIN,DIRECT 0.1 mg/dL (0.0-0.4); BILIRUBIN,TOTAL 0.3 mg/dL (0.2-1.3); BLOOD UREA NITROGEN 15 mg/dL (7-20); CALCIUM 10.2 mg/dL (8.4-10.2); CARBON DIOXIDE 28 mmol/L (22-30); CHLORIDE 102 mmol/L (98-107); GLUCOSE 107 mg/dL (75-110); POTASSIUM 4.9 mmol/L (3.6-5.0); TOTAL PROTEIN 8.2 g/dL (6.3-8.2)
--- NOTE | 2019-06-22 22:38 | EKG REPORT ---
SEVERITY:- OTHERWISE NORMAL ECG - SINUS TACHYCARDIA : Confirmed by: Satnam Herbert 22-Jun-2019 22:37:01
--- NOTE | 2019-06-23 00:30 | ER Document Report ---
ED General - General Chief Complaint: Headache Stated Complaint: BLOOD PRESSURE PROBLEM/CHEST TIGHTNESS Time Seen by Provider: 06/22/19 18:39 Primary Care Provider: ROVERTO GIRON MD [Primary Care Provider] - Follow up as needed DONIS TOSCANO MD [ACTIVE STAFF] - Follow up as needed Notes: 34 year old female has a h/o PCOS, anxiety and htn and noted her heart rate and bp to be elevated at home. She had a neighbor verify her elevated vital signs and they agreed and directed her to the Emergency Department. She complains to me of a mild throbbing gradual onset temporal headache. No rash and no tick bite. Takes lisinopril for htn. Lives at home with family. Nonsmoker. TRAVEL OUTSIDE OF THE [place] IN LAST 30 DAYS: No - Related Data Allergies/Adverse Reactions: No Known Allergies Allergy (Verified 06/22/19 18:35) Past Medical History - Social History Smoking Status: Never Smoker Chew tobacco use (# tins/day): No Frequency of alcohol use: None Drug Abuse: None Family History: Reviewed & Not Pertinent Patient has suicidal ideation: No Patient has homicidal ideation: No - Past Medical History Cardiac Medical History: Reports: Hx Hypertension Denies: Hx Pulmonary Embolism, Hx Heart Murmur Pulmonary Medical History: Denies: Hx Asthma, Hx Sleep Apnea, Hx Tuberculosis Neurological Medical History: Denies: Hx Cerebrovascular Accident, Hx Seizures Endocrine Medical History: Reports: Hx Hyperthyroidism. Denies: Hx Hypothyroidism Renal/ Medical History: Reports: Hx Ectopic , Hx Ovarian Cysts. Denies: Hx Kidney Stones, Hx Peritoneal Dialysis, Hx Pelvic Inflammatory Disease Malignancy Medical History: Denies: Hx Breast Cancer, Hx Cervical Cancer, Hx Ovarian Cancer GI Medical History: Denies: Hx Gastroesophageal Reflux Disease, Hx Hiatal Hernia, Hx Ulcer Musculoskeletal Medical History: Denies Hx Fibromyalgia Psychiatric Medical History: Reports: Hx Anxiety, Hx Depression Denies: Hx Bipolar Disorder, Hx Post Traumatic Stress Disorder, Hx Schizophrenia Traumatic Medical History: Denies: Hx Fractures Infectious Medical History: Denies: Hx HIV Past Surgical History: Reports: Hx Cholecystectomy - Immunizations Hx Diphtheria, Pertussis, Tetanus Vaccination: Yes - 2006 Review of Systems - Review of Systems Constitutional: No symptoms reported EENT: No symptoms reported Cardiovascular: No symptoms reported Respiratory: No symptoms reported Gastrointestinal: See HPI Genitourinary: No symptoms reported Female Genitourinary: No symptoms reported Musculoskeletal: No symptoms reported Skin: No symptoms reported Hematologic/Lymphatic: No symptoms reported Neurological/Psychological: No symptoms reported Physical Exam - Vital signs Vitals: Temp Pulse Resp BP Pulse Ox 98.6 F 73 18 146/104 H 100 06/22/19 17:58 06/22/19 17:58 06/22/19 17:58 06/22/19 17:58 06/22/19 17:58 Interpretation: Normal - General General appearance: Appears well, Alert - HEENT Head: Normocephalic, Atraumatic Eyes: Normal Pupils: PERRL - Respiratory Respiratory status: No respiratory distress Chest status: Nontender Breath sounds: Normal Chest palpation: Normal - Cardiovascular Rhythm: Regular Heart sounds: Normal auscultation Murmur: No - Abdominal Inspection: Normal Distension: No distension Bowel sounds: Normal Tenderness: Nontender Organomegaly: No organomegaly - Back Back: Normal, Nontender - Extremities General upper extremity: Normal inspection, Nontender, Normal color, Normal ROM, Normal temperature General lower extremity: Normal inspection, Nontender, Normal color, Normal ROM, Normal temperature, Normal weight bearing. No: Scarlet's sign - Neurological Neuro grossly intact: Yes Cognition: Normal Orientation: AAOx4 Rindge Coma Scale Eye Opening: Spontaneous Rindge Coma Scale Verbal: Oriented Haroldo Coma Scale Motor: Obeys Commands Rindge Coma Scale Total: 15 Speech: Normal Motor strength normal: LUE, RUE, LLE, RLE Sensory: Normal - Psychological Associated symptoms: Normal affect, Normal mood - Skin Skin Temperature: Warm Skin Moisture: Dry Skin Color: Normal Course - Vital Signs Vital signs: Temp Pulse Resp BP Pulse Ox 98.8 F 73 18 119/82 100 06/23/19 00:00 06/22/19 18:35 06/23/19 00:00 06/23/19 00:00 06/22/19 18:35 - Laboratory Result Diagrams: 06/22/19 19:20 06/22/19 19:20 Laboratory results interpreted by me: 06/22/19 19:20 Ur Leukocyte Esterase SMALL H - Diagnostic Test Radiology reviewed: Reports reviewed - EKG Interpretation by Me EKG shows normal: Sinus rhythm Rate: Tachycardia - Sinus Tachy nl axis no st elevaiton or depression my i nterpretation. Discharge - Discharge Clinical Impression: Palpitations, Tachycardia Condition: Good Disposition: HOME, SELF-CARE Instructions: Headache ([facility]) Additional Instructions: See your primary doctor in follow up. Please return here for any problems or any concerns. Take the medicine as directed. Prescriptions: Hydrochlorothiazide 12.5 mg PO Q48HP PRN #14 tablet PRN Reason: Forms: Elevated Blood Pressure Referrals: ROVERTO GIRON MD [Primary Care Provider] - Follow up as needed DONIS TOSCANO MD [ACTIVE STAFF] - Follow up as needed
[2019-06-23] MEDS ORDERED: ACETAMINOPHEN 325 MG TABLET PO ONE (00:35)
[2019-06-23 00:53] VITALS: BP 112/77
== END 2019-06-23 00:53 | disposition home or self-care (01) ==
LOC: ER 17:40
DX: R00.2 Palpitations (principal); R00.0 Tachycardia, unspecified; R51 Headache; I10 Essential (primary) hypertension; Z90.49 Acquired absence of other specified parts of digestive tract
CPT/HCPCS: 36415; 80053; 81001; 81025; 84443; 84484; 85025; 93005; 93010; 99285

== ENCOUNTER 2019-09-01 07:32 | Emergency (ER) | payer SELFPAY ==
--- NOTE | 2019-09-01 09:21 | RADIOLOGY REPORT (SQ) ---
EXAM DESCRIPTION: CHEST 2 VIEWS COMPLETED DATE/TIME: 09/01/2019 9:11 am REASON FOR STUDY: chronic cough with upper chest discomfort COMPARISON: 11/09/2008 EXAM PARAMETERS: NUMBER OF VIEWS: two views TECHNIQUE: Digital Frontal and Lateral radiographic views of the chest acquired. RADIATION DOSE: NA LIMITATIONS: none FINDINGS: LUNGS AND PLEURA: No opacities, masses or pneumothorax. No pleural effusion. MEDIASTINUM AND HILAR STRUCTURES: No masses or contour abnormalities. HEART AND VASCULAR STRUCTURES: Heart normal size. No evidence for failure. BONES: No acute findings. HARDWARE: None in the chest. OTHER: No other significant finding. IMPRESSION: NO ACUTE RADIOGRAPHIC FINDING IN THE CHEST. TECHNICAL DOCUMENTATION: JOB ID: [id number] 2010 [employer]- All Rights Reserved Reading location - IP/workstation name: [email or web address]
--- NOTE | 2019-09-01 09:38 | ER Document Report ---
ED Respiratory Problem - General Chief Complaint: Cough Stated Complaint: COUGH,CONGESTION Time Seen by Provider: 09/01/19 09:33 Primary Care Provider: ROVERTO GIRON MD [Primary Care Provider] - Follow up as needed Notes: CHIEF COMPLAINT: Cough for 4 days HPI: 34-year-old female presenting to the emergency department complaining of a nonproductive cough over the last 4 days. Had low-grade fevers for the first 2 days no fevers over the last 2 days. Patient's children have both been ill with upper respiratory symptoms. No chest pain. No vomiting. No abdominal pain ROS: See HPI - all other systems were reviewed and are otherwise negative Constitutional: Positive fever Eyes: no drainage, no blurred vision ENT: Positive runny nose, no sore throat Cardiovascular: no chest pain Resp: no SOB, positive cough GI: no vomiting, no diarrhea, no abdominal pain : no dysuria Integumentary: no rash Allergy: no hives Musculoskeletal: no extremity pain or swelling Neurological: no numbness/tingling, no weakness MEDICATIONS: I agree with the patient medications as charted by the RN. ALLERGIES: I agree with the allergies as charted by the RN. PAST MEDICAL HISTORY/PAST SURGICAL HISTORY: Reviewed and agree as charted by RN. SOCIAL HISTORY: Reviewed and agree as charted by RN. FAMILY HISTORY: No significant familial comorbid conditions directly related to patient complaint EXAM: Reviewed vital signs as charted by RN. CONSTITUTIONAL: Alert and oriented and responds appropriately to questions. Well-appearing; well-nourished, no acute distress HEAD: Normocephalic; atraumatic EYES: PERRL; Conjunctivae clear, sclerae non-icteric ENT: normal nose; positive clear rhinorrhea; moist mucous membranes; pharynx without lesions noted, no uvula edema or deviation, no tonsillar hypertrophy, phonation normal NECK: Supple without meningismus; non-tender; no cervical lymphadenopathy, no masses CARD: RRR; no murmurs, no clicks, no rubs, no gallops; symmetric distal pulses RESP: Normal chest excursion without splinting or tachypnea; breath sounds clear and equal bilaterally; no wheezes, no rhonchi, no rales, pulse oximetry 99% on room air not hypoxic. Spastic cough is noted ABD/GI: Normal bowel sounds; non-distended; soft, non-tender, no rebound, no guarding; no palpable organomegaly or masses. BACK: The back appears normal and is non-tender to palpation, there is no CVA tenderness EXT: Normal ROM in all joints; non-tender to palpation; no cyanosis, no effusions, no edema SKIN: Normal color for age and race; warm; dry; good turgor; no acute lesions noted NEURO: Moves all extremities equally; Motor and sensory function intact PSYCH: The patient's mood and manner are appropriate. Grooming and personal hygiene are appropriate. MDM: 34-year-old female presenting with upper respiratory symptoms for 4 days. Spastic cough noted, chest x-ray ordered via triage protocol does not show evidence of pneumonia. Influenza pending although patient is outside the window for Tamiflu. Discussed this with the patient at length, will await results of the flu swab but plan to keep patient on steroids, albuterol MDI, Mucinex, PCP follow-up TRAVEL OUTSIDE OF THE [place] IN LAST 30 DAYS: No - Related Data Allergies/Adverse Reactions: No Known Allergies Allergy (Verified 09/01/19 08:45) Home Medications: [facility] Past Medical History - Social History Smoking Status: Never Smoker Chew tobacco use (# tins/day): No Frequency of alcohol use: None Drug Abuse: None Family History: Reviewed & Not Pertinent Patient has suicidal ideation: No Patient has homicidal ideation: No - Past Medical History Cardiac Medical History: Reports: Hx Hypertension Denies: Hx Pulmonary Embolism, Hx Heart Murmur Pulmonary Medical History: Denies: Hx Asthma, Hx Sleep Apnea, Hx Tuberculosis Neurological Medical History: Denies: Hx Cerebrovascular Accident, Hx Seizures Endocrine Medical History: Reports: Hx Hyperthyroidism. Denies: Hx Hypothyroidism Renal/ Medical History: Reports: Hx Ectopic , Hx Ovarian Cysts. Denies: Hx Kidney Stones, Hx Peritoneal Dialysis, Hx Pelvic Inflammatory Disease Malignancy Medical History: Denies: Hx Breast Cancer, Hx Cervical Cancer, Hx Ovarian Cancer GI Medical History: Denies: Hx Gastroesophageal Reflux Disease, Hx Hiatal Hernia, Hx Ulcer Musculoskeletal Medical History: Denies Hx Fibromyalgia Psychiatric Medical History: Reports: Hx Anxiety, Hx Depression Denies: Hx Bipolar Disorder, Hx Post Traumatic Stress Disorder, Hx Schizophrenia Traumatic Medical History: Denies: Hx Fractures Infectious Medical History: Denies: Hx HIV Past Surgical History: Reports: Hx Cholecystectomy - Immunizations Hx Diphtheria, Pertussis, Tetanus Vaccination: Yes - 2006 Physical Exam - Vital signs Vitals: Temp Pulse Resp BP Pulse Ox 98.2 F 97 20 141/90 H 100 09/01/19 07:36 09/01/19 07:36 09/01/19 07:36 09/01/19 07:36 09/01/19 07:36 Course - Re-evaluation Re-evalutation: 09/01/19 09:51 Influenza test negative will discharge - Vital Signs Vital signs: Temp Pulse Resp BP Pulse Ox 98.2 F 97 20 141/90 H 100 09/01/19 07:36 09/01/19 07:36 09/01/19 07:36 09/01/19 07:36 09/01/19 07:36 Discharge - Discharge Clinical Impression: Influenza-like illness Condition: Stable Disposition: HOME, SELF-CARE Instructions: Upper Respiratory Illness ([facility]) Additional Instructions: 1. take the medications as prescribed 2. if you were prescribed an Albuterol inhaler, use it as instructed, 2 puffs every 4 hours as needed for cough/wheezing 3. call your primary care provider as soon as possible to schedule recheck appt. in the office. 4. return to the ED for any worsening condition, shortness of breath or continued fever that does not resolve with Motrin/Tylenol Prescriptions: Prednisone [Deltasone 20 mg Tablet] 2 tab PO DAILY 5 Days #10 tablet Guaifenesin/Dextromethorphan [Mucinex Dm ER 600-30 mg Tablet] 1 each PO BID #20 tab.er.12h Albuterol Sulfate [Proair HFA Inhalation Aerosol 8.5 gm MDI] 2 puff IH Q4H PRN #1 mdi PRN Reason: Referrals: ROVERTO GIRON MD [Primary Care Provider] - Follow up as needed
[2019-09-01 09:39] LABS: A TYPE INFLUENZA AG NEGATIVE (NEGATIVE); B INFLUENZA AG NEGATIVE (NEGATIVE)
[2019-09-01 10:05] VITALS: BP 125/83
== END 2019-09-01 10:06 | disposition home or self-care (01) ==
LOC: ER 07:32
DX: J11.1 Influenza due to unidentified influenza virus with other respiratory manifestations (principal); R05 Cough; R09.81 Nasal congestion; R09.89 Other specified symptoms and signs involving the circulatory and respiratory systems; R50.9 Fever, unspecified; I10 Essential (primary) hypertension
CPT/HCPCS: 71046; 87804; 99283